=== PATIENT | male | born 1955 | race Caucasian/White ===

== ENCOUNTER 2016-07-11 05:25 | Day surgery (SDC) | payer BC ==
[~2016-07-11 05:25] MED LIST: ADULTS 50+ MUL1 EACH PO; ASPIRIN325 M3 PO; B COMPLEX PO; FISH OIL 1,0001 EA10 PO; LIPITOR10 M1 PO; LORATADINE10 M2 PO; MELATIN3 MG PO; POTASSIUM99 M5 PO; VITAMIN A PO; VITAMIN E400 UNI4 PO; ZINC50 M2 PO
[2016-07-11 06:12] LABS: BASO % 0.4 % (0-2); EOS % 6.5 % (0-7); EOSINOPHIL ABSOLUTE COUNT 0.4 tho/cmm (0.0-0.7); HCT-HEMATOCRIT 45.4 % (36.0-53.5); HGB-HEMOGLOBIN 15.7 gm/dl (13.5-17.0); LYMPH % 37.2 % (20-45); MCH (MEAN CORPUSCULAR HGB) 31.7 pg (28.0-32.0); MCHC MEAN CORPUSCULAR HGB CONC 34.6 % (32.0-36.0); MCV (MEAN CELL VOLUME) 91.5 fl (82.0-96.0); MEAN PLATELET VOLUME 9.8 cmc (9.4-12.4); MONO % 10.1 % (0-12); MONOCYTE ABSOLUTE COUNT 0.5 tho/cmm (0.0-1.2); NEUTROPHIL ABSOLUTE COUNT 2.5 tho/cmm (1.6-8.0); NEUTROPHIL-AUTOMATED 2.5 tho/cmm (1.6-8.0); NEUTROPHILS % 45.8 % (40-80); PLATELET COUNT 202 tho/cmm (150-450); RED BLOOD COUNT 4.96 mil/cmm (4.40-5.70); RED CELL DISTRIBUTION WIDTH 13.3 % (12.4-16.4); WHITE BLOOD COUNT 5.4 tho/cmm (4.0-10.0)
[2016-07-11 06:20] LABS: PROTHROMBIN TIME 11.1 SECONDS (9.0-13.6)
[2016-07-11 06:28] LABS: ANION GAP 14 mmol/L (0-20); BLOOD UREA NITROGEN 22 mg/dl (6-24); CALCIUM 8.9 mg/dl (8.5-10.5); CARBON DIOXIDE-VENOUS 22 mmol/L (22-32); CHLORIDE 109 mmol/l (96-110); CREATININE 0.76 mg/dl (0.60-1.30); GLUCOSE 98 mg/dL (70-110); POTASSIUM 3.8 mmol/L (3.7-5.1); SODIUM 141 mmol/L (135-145); eGFR VALUE FOR BLACK >90 mL/Min
--- NOTE | 2016-07-11 19:25 | NUR ---
VIRTUAL CARE NOTE: PT. IN BED, STATES PAIN IS LOW. PLANS TO WALK AROUND 2100. PT. INFORMS THIS NURSE THEY WEREN'T ABLE TO DO PROCEEDURE. THIS RN WASN'T INFORMED AT THIS TIME. WILL REVIEW CHART MORE AT A LATER TIME. DENIES N/V WITH DIET. INSTRUCTED TO CALL FOR FUTURE NEEDS. STATES VERBAL AGREEMENT.
[2016-07-12 04:52] LABS: BASO % 0.2 % (0-2); EOS % 2.2 % (0-7); EOSINOPHIL ABSOLUTE COUNT 0.2 tho/cmm (0.0-0.7); HCT-HEMATOCRIT 41.5 % (36.0-53.5); HGB-HEMOGLOBIN 13.8 gm/dl (13.5-17.0); IMMATURE GRANULOCYTES ABSOLUTE 0.02 tho/cmm (0-0.03); IMMATURE GRANULOCYTES PERCENT 0.2 % (0-0.3); LYMPH % 13.3 % (20-45); LYMPH ABSOLUTE COUNT 1.1 tho/cmm (0.8-4.5); MCH (MEAN CORPUSCULAR HGB) 31.1 pg (28.0-32.0); MCHC MEAN CORPUSCULAR HGB CONC 33.3 % (32.0-36.0); MCV (MEAN CELL VOLUME) 93.5 fl (82.0-96.0); MEAN PLATELET VOLUME 9.8 cmc (9.4-12.4); MONO % 8.1 % (0-12); MONOCYTE ABSOLUTE COUNT 0.7 tho/cmm (0.0-1.2); NEUTROPHIL ABSOLUTE COUNT 6.2 tho/cmm (1.6-8.0); NEUTROPHIL-AUTOMATED 6.2 tho/cmm (1.6-8.0); PLATELET COUNT 174 tho/cmm (150-450); RED BLOOD COUNT 4.44 mil/cmm (4.40-5.70); RED CELL DISTRIBUTION WIDTH 13.4 % (12.4-16.4); WHITE BLOOD COUNT 8.1 tho/cmm (4.0-10.0)
[2016-07-12 05:01] LABS: ANION GAP 10 mmol/L (0-20); BLOOD UREA NITROGEN 15 mg/dl (6-24); CALCIUM 8.3 mg/dl (8.5-10.5); CARBON DIOXIDE-VENOUS 27 mmol/L (22-32); CHLORIDE 106 mmol/l (96-110); CREATININE 0.74 mg/dl (0.60-1.30); GLUCOSE 103 mg/dL (70-110); POTASSIUM 3.8 mmol/L (3.7-5.1); SODIUM 139 mmol/L (135-145); eGFR VALUE FOR BLACK >90 mL/Min
[2016-07-12] MEDS ORDERED: BACITRACIN28.4 G2 TOP (09:15)
[2016-07-12] MEDS ORDERED: NORCO 5-325 TA1 EACH PO (10:04)
--- NOTE | 2016-07-12 10:30 | NUR ---
VIRTUAL CARE NOTE: PT RESTING ON BED, STATES DOING GOOD. PT READY FOR DISCHARGE INSTRUCTION. INFORMATION GIVEN TO PT. PT DENIES QUESTIONS OR CONCERNS. INFORMED FLOOR NURSE DISCHARGE TEACHING COMEPLETED.
== END 2016-07-12 11:35 ==
LOC: SRG 05:25 → SHSA 05:26 → ORW 07:30 → 5WD 14:47
PROVIDERS: Surgery Vascular Surgery
PROC: 05JY0ZZ Inspection of Upper Vein, Open Approach (ICD-10-PCS; principal; 2016-07-11)
PROC: 0JPT3XZ Removal of Tunneled Vascular Access Device from Trunk Subcutaneous Tissue and Fascia, Percutaneous Approach (ICD-10-PCS; 2016-07-11)
DX: T82.514A Breakdown (mechanical) of infusion catheter, initial encounter (principal); E88.01 Alpha-1-antitrypsin deficiency; J45.909 Unspecified asthma, uncomplicated; J44.9 Chronic obstructive pulmonary disease, unspecified; Z79.82 Long term (current) use of aspirin; Z79.899 Other long term (current) drug therapy; Z87.891 Personal history of nicotine dependence; Z98.890 Other specified postprocedural states
CPT/HCPCS: C1725; C1769; C1773; C1887; C1894; J0690; J1644; J7030; Q9967